=== PATIENT | female | born 1995 | race African-American/Black ===

== ENCOUNTER 2016-10-10 09:40 | Emergency (ER) | payer BC ==
[~2016-10-10] VITALS: Ht 162.6 cm; Wt 68.0 kg
[2016-10-10] MEDS ORDERED: ONDANSETRON HCL 4MG/2ML VIAL IV ONE (11:45)
[2016-10-10] MEDS ORDERED: SODIUM CHLORIDE 0.9% 1,000 ML IV ONE (11:45)
[2016-10-10] MEDS ORDERED: KETOROLAC 15MG/ML VIAL IV ONE (11:45)
[2016-10-10 11:53] LABS: BASOPHILS % 0.3 % (0.0-2.0); HEMATOCRIT. 35.6 % (36.0-48.0); HEMOGLOBIN. 11.8 g/dL (12.0-16.0); MEAN CORPUSCULAR HEMOGLOBIN 30.4 pg (28.0-32.0); MEAN CORPUSCULAR VOLUME 91.8 fL (81.0-99.0); NEUTROPHILS % 69.7 % (40.0-76.0); PLATELET 262 x1000/uL (130-400); RED BLOOD CELL COUNT 3.88 mill/uL (4.2-5.4); RED CELL DISTRIBUTION WIDTH 13.5 % (11.6-14.6)
[2016-10-10 12:00] LABS: CHLORIDE 103 mEq/L (98-107)
[2016-10-10 12:05] LABS: CARBON DIOXIDE 28 mEq/L (21-32)
[2016-10-10 13:32] LABS: CLARITY URINE CLOUDY (CLEAR); COLOR URINE DARK YELLOW (YELLOW); GLUCOSE URINE NEGATIVE (NEGATIVE); KETONES URINE TRACE (NEGATIVE); LEUKOCYTE ESTERASE URINE TRACE (NEGATIVE); NITRITE URINE NEGATIVE (NEGATIVE); OCCULT BLOOD URINE 3+ (NEGATIVE); PH URINE 6.5 (4.5-8.0); PROTEIN URINE 1+ (NEGATIVE); SPECIFIC GRAVITY URINE 1.028 (1.005-1.030)
[2016-10-10 13:56] LABS: *AMPHETAMINES SCREEN URINE NEGATIVE (NEGATIVE); *BARBITURATES SCREEN URINE NEGATIVE (NEGATIVE); *BENZODIAZEPINES SCREEN URINE NEGATIVE (NEGATIVE); *COCAINE SCREEN URINE NEGATIVE (NEGATIVE); CANNABINOID URINE SCREEN NEGATIVE (NEGATIVE); METHADONE URINE SCREEN NEGATIVE (NEGATIVE); OPIATES URINE SCREEN NEGATIVE (NEGATIVE); PHENCYCLIDINE URINE SCREEN NEGATIVE (NEGATIVE)
[2016-10-10 14:44] VITALS: BP 117/71
[2016-10-10] MEDS ORDERED: ACETAMINOPHEN WITH CODEINE 300/30MG TABLET PO ONE (14:45)
== END 2016-10-10 14:59 | disposition home or self-care (01) ==
LOC: ER 11:18
DX: N39.0 Urinary tract infection, site not specified (principal); R51 Headache; R50.9 Fever, unspecified; R11.2 Nausea with vomiting, unspecified
CPT/HCPCS: 36415; 80048; 80305; 81001; 81025; 85025; 87086; 96361; 96374; 96375; 99284; J1885; J2405; J7030

== ENCOUNTER 2017-04-14 16:32 | Emergency (ER) | payer BC ==
[~2017-04-14] VITALS: Ht 162.6 cm; Wt 73.0 kg
[2017-04-14] MEDS ORDERED: IBUPROFEN 600MG TABLET PO ONE (19:30)
[2017-04-14 23:00] VITALS: BP 138/74
== END 2017-04-14 23:15 | disposition home or self-care (01) ==
LOC: ER 17:50
DX: S63.502A Unspecified sprain of left wrist, initial encounter (principal); M79.645 Pain in left finger(s); G43.909 Migraine, unspecified, not intractable, without status migrainosus; W01.0XXA Fall on same level from slipping, tripping and stumbling without subsequent striking against object, initial encounter; Y93.89 Activity, other specified; Y99.8 Other external cause status; Y92.89 Other specified places as the place of occurrence of the external cause
CPT/HCPCS: 29125; 73110; 73130; 73200; 99284

== ENCOUNTER 2020-08-10 16:28 | Emergency (ER) | payer BC ==
[~2020-08-10] VITALS: Ht 165.1 cm; Wt 77.0 kg
[2020-08-10] MEDS ORDERED: DEXAMETHASONE 4MG/ML 1ML VIAL IM ONE (17:30)
[2020-08-10] MEDS ORDERED: KETOROLAC 30MG/ML VIAL IM ONE (17:30)
[2020-08-10] MEDS ORDERED: IBUP-2029 MT (17:52)
[2020-08-10] MEDS ORDERED: P20 MT (17:52)
[2020-08-10] MEDS ORDERED: AMOX-494 MT (17:52)
[2020-08-10 18:12] VITALS: BP 126/82
== END 2020-08-10 18:18 | disposition home or self-care (01) ==
LOC: ER 16:28
DX: J02.9 Acute pharyngitis, unspecified (principal)
CPT/HCPCS: 99283; J1100; J1885